=== PATIENT | female | born 1975 | race African-American/Black ===

== ENCOUNTER 2016-06-14 15:48 | Emergency (ER) | payer MEDICAID ==
--- NOTE | 2016-06-14 16:04 | EDPHY ---
H & P Stated Complaint: r ear Time Seen by Provider: 06/14/16 16:01 HPI/ROS: CHIEF COMPLAINT: Right ear pain HISTORY OF PRESENT ILLNESS: 41-year-old female presents emergency department complaining of right ear pain that started last night. She reports cold symptoms with nasal congestion, sore throat that started yesterday. She reports subjective fevers and chills, no difficulty swallowing, no shortness of breath or chest pain. Patient reports this feels similar to a previous infection. No nausea vomiting or diarrhea, no abdominal pain. REVIEW OF SYSTEMS: A comprehensive 10 point review of systems is otherwise negative aside from elements mentioned in the history of present illness. Source: Patient Exam Limitations: No limitations - Personal History LMP (Females 10-55): 15-21 Days Ago Current Tetanus/Diphtheria Vaccine: Yes - Medical/Surgical History Hx Asthma: No Hx Chronic Respiratory Disease: No Hx Diabetes: No Hx Cardiac Disease: No Hx Renal Disease: No Hx Cirrhosis: No Hx Alcoholism: No Hx HIV/AIDS: No Hx Splenectomy or Spleen Trauma: No Other PMH: anemia/epilepsy - Social History Smoking Status: Never smoked - Physical Exam Exam: General: Alert, nontoxic. ENT: Left tympanic membrane obscured with cerumen, right TM with erythema and bulging, external auditory canal, external ear and surrounding soft tissue including over the mastoid unremarkable. Nasopharynx is injected, there is no rhinorrhea. Oropharynx with moderate erythema, no edema. There is no exudate. Mild bilateral tonsillar hypertrophy. No asymmetry. The uvula is midline. No elevation of tongue. There is no hoarseness. No drooling, patient has good control of their oral secretions. No trismus. No stridor. Cardiac: Regular rate and rhythm. Respiratory: Lungs clear to auscultation bilaterally. Neurological: no meningismus. Skin: No rashes. Constitutional: Initial Vital Signs Temperature (C) 36.4 C 06/14/16 15:54 Heart Rate 94 06/14/16 15:54 Respiratory Rate 16 06/14/16 15:54 Blood Pressure 122/89 H 06/14/16 15:54 O2 Sat (%) 99 06/14/16 15:54 O2 Delivery Mode Room Air Allergies/Adverse Reactions: ampicillin Allergy (Verified 06/14/16 15:52) Home Medications: Medication Instructions Recorded Amoxicillin 500 mg PO BID 10 Days 06/14/16 Hydrocodone/APAP 5/325 [[place] 1 tab PO Q4H PRN #7 tab 06/14/16 5/325] Departure - Departure Disposition: Home, Routine, Self-Care Clinical Impression: Otitis media Qualifiers: Otitis media type: suppurative Laterality: right Chronicity: acute Recurrence: not specified as recurrent Spontaneous tympanic membrane rupture: without spontaneous rupture Qualified Code(s): H66.001 - Acute suppurative otitis media without spontaneous rupture of ear drum, right ear Condition: Good Instructions: Otitis Media (ED) Additional Instructions: Take over the counter Tylenol and ibuprofen as instructed. Take antibiotic as prescribed. Rest, drink plenty of fluids. Use a saline nasal rinse, humidifier at night, hot steam showers. [facility] for symptoms that are not improving. Return to the ED for difficulty breathing, chest pain, other concerns. Prescriptions: Amoxicillin 500 mg PO BID 10 Days Hydrocodone/APAP 5/325 [[place] 5/325] 1 tab PO Q4H PRN #7 tab PRN Reason: Pain, Moderate
[2016-06-14] MEDS ORDERED: HYDROCODONE/APAP 5/325 TAB PO ONE (17:00)
[2016-06-14] MEDS ORDERED: IBUPROFEN 600 MG TAB PO ONE (17:01)
[2016-06-14 17:59] VITALS: BP 122/78; PULSE 104; RESP 18; TEMP 99.7; O2SAT 96
== END 2016-06-14 18:17 | disposition home or self-care (01) ==
LOC: MERGE 15:48
DX: H66.001 Acute suppurative otitis media without spontaneous rupture of ear drum, right ear (principal)